=== PATIENT | female | born 1970 | race Caucasian/White ===

== ENCOUNTER → 2021-11-19 09:51 | Outpatient (BNVA) | payer OTHER, SELFPAY | PROVIDERS: PCP Internal Medicine; Visit Provider Nurse Practitioner Family | DX: G43.009 Migraine without aura, not intractable, without status migrainosus (principal); F09 Unspecified mental disorder due to known physiological condition; F07.81 Postconcussional syndrome | CPT/HCPCS: 99212 ==

== ENCOUNTER → 2022-02-16 09:54 | Outpatient (BNVA) | payer OTHER, SELFPAY | PROVIDERS: PCP Internal Medicine; Visit Provider Nurse Practitioner Family | DX: F07.81 Postconcussional syndrome (principal); G43.009 Migraine without aura, not intractable, without status migrainosus; F09 Unspecified mental disorder due to known physiological condition | CPT/HCPCS: 99212 ==

== ENCOUNTER → 2023-01-14 07:46 | Outpatient (BNVA) | payer OTHER, SELFPAY | PROVIDERS: PCP Internal Medicine; Visit Provider Nurse Practitioner Family | DX: G43.009 Migraine without aura, not intractable, without status migrainosus (principal); F07.81 Postconcussional syndrome; R06.2 Wheezing; R05.9 Cough, unspecified; R42 Dizziness and giddiness; F09 Unspecified mental disorder due to known physiological condition | CPT/HCPCS: 99212 ==

== ENCOUNTER 2023-10-26 11:08 | Outpatient (AMB) | payer OTHER, SELFPAY ==
[2023-10-26 11:19] VITALS: BP 118/80; PULSE 84; O2SAT 96; BMI 35.2
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
== END 2023-10-26 12:00 | disposition home or self-care (01) ==
PROVIDERS: Visit Provider Nurse Practitioner Family
DX: R41.840 Attention and concentration deficit (principal); F07.81 Postconcussional syndrome; Z04.3 Encounter for examination and observation following other accident
CPT/HCPCS: 99213

== ENCOUNTER → 2023-10-26 11:08 | Outpatient (BNVA) | payer OTHER, SELFPAY | PROVIDERS: Visit Provider Nurse Practitioner Family | DX: F07.81 Postconcussional syndrome (principal); F09 Unspecified mental disorder due to known physiological condition | CPT/HCPCS: 99212 ==

== ENCOUNTER 2024-04-26 09:30 | Outpatient (AMB) | payer OTHER, SELFPAY ==
--- NOTE | 2024-04-26 09:51 | A.OFFVIS_ITS ---
Vital Signs 04/26/24 09:58 Height 5 ft 4 in Weight 205 lb 8 oz BMI 35.3 BP 115/72 Blood Pressure Location Rt brachial Position Sitting Pulse 82 Pulse Source Pulse Oximeter Pulse Oximetry (%) 98 Oxygen Delivery Method Room Air Intake Visit Reasons: 6 mnts for postconcussive-CONF Intake Note: Patient presents for 6months f/u. Headaches are a lot better but having more memory loss Allergies hydromorphone [From Dilaudid] Allergy (Intermediate, Verified 04/26/24 09:55) Unknown Medication List - Last Reconciled 04/26/24 by AMBROCIO Us albuterol sulfate 90 mcg/actuation (Ventolin HFA) 2 puffs inhalation Q4-6H PRN magnesium oxide 400 mg PO BEDTIME 30 days multivitamin 1 tab PO DAILY omeprazole magnesium 20 mg PO DAILY 30 days riboflavin (vitamin B2) (Vitamin B-2) 200 mg (2 x 100 mg) PO BID 30 days HPI Comments Details: 53-yr-old female presents for f/u visit. Pt continues to have cognitive difficulties. She just had a brain MRI at [facility]. She has been having more osmophobia. She reports that the osmophobia may trigger a headache but may not. About 2 yrs ago, had an episode where the smell exposure triggered full body weakness, could not walk. Had to go to the ER- states work-up was negative. She wonders if this could be d/t migraine. 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 Has not started official tx yet, using OTC supplements which do seem to be helping. She plans to switch to a new machine cell tuber, [facility]. Typical headache characteristics: Prodrome symptoms: unsure Aura: unsure Pain intensity: 7/10 Location, quality, characteristics: Bilateral eyes/ears, frontal, top of head, temporal pressure Associated symptoms: osmophobia, nausea, rare vomiting, not right in space dizziness, lightheadedness, fatigue, cognitive difficulties, activity intolerance, arms feels weak- tashia right hand feels like she cannot pick anything up w/ her right hand, face flushes. Postdrome: unsure Triggers: odors or when her menses would be due Time of day: No specific time of day Duration and Frequency: near constant, worse during 2 weeks when she would have had her menses. PFSH Surgical History History of endometrial ablation H/O tubal ligation Family History Sister CKD (chronic kidney disease) Son Inflammatory heart disease Social History Alcohol intake: never Patient Tobacco Use Status: Never used Tobacco Physical Exam Vital Signs: Last Vital Signs Pulse 82 04/26/24 09:58 BP 115/72 04/26/24 09:58 Pulse Ox 98 04/26/24 09:58 Oxygen Delivery Method Room Air 04/26/24 09:58 BMI result Body Mass Index 35.3 Const General: cooperative and no acute distress Orientation/consciousness: patient oriented x3 Resp Effort & Inspection: normal respiratory effort and able to speak in complete sentences Neuro General: patient oriented x3 Cranial nerves: Yes CN's II-XII intact bilaterally Cognition (Neuro): normal cognition Psych Appearance: grossly normal Mental Status: mental status grossly normal Speech and movement: Normal speech and movement present Affect: normal affect Attitude: cooperative Assessment & Plan Assessment & Plan (1) Migraine without aura: Comment: medication trials- failed Amitriptyline (too sleepy). Code(s): G43.009 - Migraine without aura, not intractable, without status migrainosus Category: Medical (2) Weakness: Code(s): R53.1 - Weakness Category: Medical Plan Pt's episodes of headache which is c/w chronic migraine, osmophobia which may trigger headache, osmophobia which triggers weakness, cognitive diffiuclties- may be chronic migraine, Mast cell activation syndrome, or possibly a skeletal muscle potassium ion channel mutations d/o such as Hypokalemic periodic paralysis (hypoPP)- though this is quite rare. Trial Doxepin 10-30mg qhs for migraine prevention and to see if pt's episodes of osmophobia, nausea, weakness. Advised to track headache and associated symptoms. Discussed that if this is effective, it would support a dx of migarine and/or mast cell activation d/o. f/u w/ machine cell tuber as scheduled. Future considerations- adding acute migraine tx. Check BMP prn episodes of weakness triggered by smell or chemical exposure to eval electrolyte, specifically potassium- multiple lab slips given. Previous neuropsyh results- no evidence for ADHD or neurodegenerative process, cognitive difficulties were felt to be secondary to h/o personal trauma. f/u in 6 months or sooner prn Orders: Orders Basic Metabolic Panel Today R53.1 - Weakness Medications: New doxepin 10 - 30 mg (1 - 3 x 10 mg) PO BEDTIME 30 days 90 caps 3RF Coding Level of Care Code Est Pt Level 4 (85096) Diagnoses Migraine without aura G43.009 Weakness R53.1
[2024-04-26 09:58] VITALS: BP 115/72; PULSE 82; O2SAT 98; BMI 35.3
== END 2024-04-26 11:05 | disposition home or self-care (01) ==
PROVIDERS: PCP Internal Medicine; Visit Provider Nurse Practitioner Family
DX: G43.009 Migraine without aura, not intractable, without status migrainosus (principal); R53.1 Weakness
CPT/HCPCS: 99214

== ENCOUNTER → 2024-04-26 09:30 | Outpatient (BNVA) | payer OTHER, SELFPAY | PROVIDERS: PCP Internal Medicine; Visit Provider Nurse Practitioner Family | DX: G43.009 Migraine without aura, not intractable, without status migrainosus (principal); R53.1 Weakness | CPT/HCPCS: 99212 ==

== ENCOUNTER 2024-04-26 15:18 | Outpatient (REF) | payer OTHER, SELFPAY ==
[2024-04-26 17:26] LABS: MANUAL DIFF FLAG NO
[2024-04-26 17:31] LABS: Basophils Percent Auto 0.7 % (0-2); Eosinophils Absolute Auto 0.1 X10*3/uL (0.0-0.4); Eosinophils Percent Auto 1.1 % (0-4); Hematocrit 39.7 % (37.0-47.0); Hemoglobin 13.5 g/dl (12.0-16.0); Imm Gran Abs Auto 0.01 X10*3/uL (0.00-0.03); Imm Gran Pct Auto 0.2 % (0.0-0.4); Lymphocytes Absolute Auto 1.5 X10*3/uL (1.2-4.9); Lymphocytes Percent Auto 27.7 % (20-40); Mean Corpuscular Hemoglobin 29.7 pg (27.0-33.0); Mean Corpuscular Volume 87.3 fL (80.0-98.0); Mean Platelet Volume 11.7 fL (9.4-12.3); Monocytes Absolute Auto 0.5 X10*3/uL (0.1-1.2); Monocytes Percent Auto 9.8 % (2-11); Neutrophils Absolute Auto 3.3 x10*3/uL (2.0-8.3); Neutrophils Percent Auto 60.5 % (45-73); Platelet Count 239 X10*3/uL (160-400); Red Blood Count 4.55 X10*6/uL (4.20-5.50); Red Cell Distribution Width 12.7 % (11.0-16.0); White Blood Count 5.4 X10*3/uL (4.8-10.8)
[2024-04-26 17:33] LABS: Prothrombin Time 11.9 SEC (11.1-13.3)
[2024-04-26 17:46] LABS: Rheumatoid Factor < 13.0 IU/mL (<15.0)
[2024-04-26 17:48] LABS: Alanine Aminotransferase 27 U/L (0-31); Albumin Level 4.4 g/dL (3.5-5.0); Alkaline Phosphatase 102 U/L (39-117); Anion Gap 13 (12-20); Aspartate Amino Transferase 21 U/L (5-31); Bilirubin Total 0.4 mg/dL (0.0-1.0); Blood Urea Nitrogen 13 mg/dL (9-16); Calcium 10.2 mg/dL (8.4-10.2); Carbon Dioxide 25 mmol/L (22-29); Chloride 108 mmol/L (96-108); Estimated Glomerular Filt Rate > 60; Glucose Random 83 mg/dL (60-115); Potassium 3.5 mmol/L (3.3-5.1); Sodium 142 mmol/L (135-145); Total Protein 8.1 g/dL (6.5-8.0)
[2024-04-26 18:19] LABS: Erythrocyte Sedimentation Rate 24 MM/HR (0-20)
[2024-04-26 18:39] LABS: Partial Thromboplastin Time 30.6 SEC (26.0-36.8)
[2024-04-27 05:04] LABS: Estimated Average Glucose 120 mg/dL; Hemoglobin A1c % 5.8 % (<6.0)
[2024-04-28 18:44] LABS: CRP High Sensitivity 6.4 mg/L
[2024-05-04 12:19] LABS: Anti Nuclear Antibody Screen NEGATIVE (NEGATIVE)
== END 2024-04-26 15:19 | disposition home or self-care (01) ==
LOC: HO.HKASLDS 15:18
PROVIDERS: Visit Provider Nurse Practitioner Family
DX: R53.1 Weakness (principal); H53.8 Other visual disturbances; R90.89 Other abnormal findings on diagnostic imaging of central nervous system; F09 Unspecified mental disorder due to known physiological condition
CPT/HCPCS: 36415; 80053; 83036; 85025; 85610; 85652; 85730; 86038; 86141; 86431

== ENCOUNTER 2024-11-23 11:17 | Outpatient (AMB) | payer OTHER, SELFPAY ==
[2024-11-23 11:21] VITALS: BP 120/74; PULSE 79; O2SAT 96; BMI 35.1
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
--- OUTSIDE RECORDS SUMMARY | 2024-11-23 15:10 | XMS_ITS | Clinical Summary ---
Author Organization 175 [facility] Address [address] [place] [address] Phone Care Team Providers Care Gaming Commissioner Name Role Phone Sheron Merino MD Primary Care Provider Allergies Active Allergy Reactions Criticality Noted Date Comments Hydromorphone 08/20/2016 Anxious Medications Medication Sig Dispensed Refills Start Date End Date Status albuterol HFA (Ventolin HFA) 90 mcg/actuation inhaler INHALE 2 PUFFS EVERY 4-6HRS NEEDED 01/17/2024 Active cholecalciferol (VITAMIN D-3) 50 mcg (2,000 unit) capsule Take by mouth. Active vitamin K1-vitamin E TPGS 200 mcg-2 mg /0.2 mL drops Take by mouth. Active fluticasone propion-salmeteroL (ADVAIR DISKUS) 100-50 mcg/dose diskus inhaler Take 1 puff by mouth 2 (two) times a day. 03/13/2024 Active naproxen (NAPROSYN) 500 mg tablet Take 1 tablet (500 mg total) by mouth. 06/28/2024 06/23/2025 Active Active Problems Problem Noted Date Diagnosed Date Chest pain 03/24/2024 Overview (07/27/2024): Last Assessment & Plan: Patient will be scheduled for routine stress test not the possibility of ischemic disease Class 2 obesity due to exces s calories without serious comorbidity in adult 03/22/2024 Gastroesophageal reflux disease 03/22/2024 Exertional dyspnea 03/22/2024 Mild persistent asthma without complication 02/23 Helicobacter pylori gastritis 07/27/2021 Pulmonary nodule 04/24/2021 Overview (07/27/2024): Incidental finding on CT chest 03/2021 COVID-19 virus detected 09/23/2020 Cervicalgia 08/04/2020 Overview (07/27/2024): Normal MRI of the cervical spine done in the emergency room June 2020 Lumbar disc herniation 03/18/2017 Overview (07/27/2024): L5-S1 disc herniation with extruded fragment Had MRI of the lumbar spine when she went to the emergency room June 2020 no stenosis Anxiety 09/22/2016 Fibromyalgia 09/22/2016 Depression 08/31/2005 Encounters Date Type Department Care Team Description 11/03/2024 9:00 AM EST Office Visit Adult Medicine [facility] [address] [place] [phone] Sheron Merino MD 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 Telephone Adult Medicine [facility] [address] [place] [phone] Hilary Carroll, RN Results from Last 3 Months Immunizations Name Administration Dates Next Due Hepatitis B (Csucyjc-G-Mufjc , Recombivax HB-Adult) 19yo and older 12/23/2005,07/15/2005,06/24/2005 Influenza Quadravalent, MDCK , 0.5ml, preservative free (Flucelvax) 6mo and older 07/05/2023,07/10/2022 Moderna SARS-CoV-2 COVID-19, mRNA, LNP-S, preservative free 11/07/2021 PPD Test 05/19/2005 Pfizer SARS-CoV-2 COVID-19, mRNA, LNP-S, preservative free 09/11/2022 Td Tetanus diptheria (Tdvax) 7yo and older 06/18,07/02/2001 Tdap Tetanus diptheria acell ular pertussis (Boostrix; Adacel) 7yo and older 08/31/2016 Surgical History Surgery Date Site/Laterality Comments TUBAL LIGATION 1999 PROCEDURE: HISTORICAL TUBAL LIGATION OTHER SURGICAL HISTORY PROCEDURE: UT DILATION & CURETTAGE DX&/THER NONOBSTETRIC Medical History Medical History Date Comments Fibromyalgia DX:Fibromyalgia Pre-diabetes DX:Pre-diabetes Depression 08/31/2005 DX:Depression Anxiety 09/22/2016 DX:Anxiety ADD (attention deficit disorder) 09/22/2016 DX:ADD (attention deficit disorder) Headache 09/22/2016 DX:Headache Lumbar disc herniation 03/18/2017 DX:Lumbar disc herniation; COMMENT: L5-S1 disc herniation with extruded fragment Family History Medical History Relation Name Comments Alzheimer's disease Aunt Suicide Attempts Brother 1 ADD / ADHD Daughter 1 Bipolar disorder Daughter 2 Other: Fibromyalgia Daughter 2 No Known Problems Father Dementia Maternal Grandmother Depression Mother Rheum arthritis Mother Depression Sister Diabetes Sister ADD / ADHD Son Breast cancer Neg Hx Cancer of Small Bowel Neg Hx Colon cancer Neg Hx Kidney cancer Neg Hx Ovarian cancer Neg Hx Pancreatic cancer Neg Hx Uterine cancer Neg Hx Relation Name Status Comments Aunt Alive Brother 1 Brother 2 Alive Daughter 1 Alive Daughter 2 Alive Father Alive Maternal Grandfather Maternal Grandmother Mother Alive Paternal Grandfather Paternal Grandmother Sister Son Alive Social History Tobacco Use Types Packs/Day Years Used Date Smoking Tobacco: Never Smokeless Tobacco: Never Tobacco Cessation:Counseling Given: Not Answered Alcohol Use Standard Drinks/Week Comments No 0 (1 standard drink = 0.6 oz pur e alcohol) Housing Instability Answer Date Recorde d Are you worried that in the next 2 months you may not have stable housing? No 11/02/2024 Food Access & Nutrition Answer Date Rec orded Do you have access to a vari ety of food including fruits and vegetables? Yes 11/02/2024 Access to Healthcare Answer Date Record ed Within the last 3 months, brandon w many times did you visit the emergency department for your medical care? 0 11/02/2024 Health Literacy Answer Date Recorded How often do you need to hav e someone help you when you read instructions, pamphlets, or other written material from your doctor or pharmacy? Never 11/02/2024 Caregiver: How often do you need to have someone help you when you read instructions, pamphlets, or other written material from your doctor or pharmacy? Not on file 11/02/2024 Financial Risk Answer Date Recorded How hard is it for you to pa y for the very basics like food, housing, medical care, and air conditioning / heating? Not very hard 11/02/2024 Transportation Answer Date Recorded Has the lack of transportati on kept you from meetings, work, or from getting things needed for daily living? No Has the lack of transportati on kept you from medical appointments or from getting medications? No 11/02/2024 Social Isolation Answer Date Recorded How often do you feel lonely or isolated from those around you? Sometimes 11/02/2024 Food Risk Answer Date Recorded Within the past 12 months we worried whether our food would run out before we got money to buy more. Never true 11/02/2024 Within the past 12 months th e food we bought just didn't last and we didn't have money to get more. Never true 11/02/2024 Dependent Care Answer Date Recorded Do you need help finding or paying for care for your loved ones. For example, early childhood assistant or elderly care for an older adult? No 11/02/2024 Education Answer Date Recorded Do you think completing more education or training, like finishing a GED, going to college, or learning a trade, would be helpful for you? N/A 11/02/2024 Employment and Income Answer Date Recor ded During the last four weeks, have you been actively looking for work? No 11/02/2024 Living Situation Answer Date Recorded What is your living situation? 0 11/02/2024 Sex and Gender Information Value Date Recorded Sex Assigned at Not on file Gender Identity Not on file Sexual Orientation Not on file Job Start Date Occupation Industry Not on file Not on file Not on file Obstetrics History Last Filed Vital Signs Vital Sign Reading Time Taken Comments Blood Pressure 101/60 11/03/2024 9:03 AM EST Pulse 76 11/03/2024 9:03 AM EST Temperature 36.2 ??C (97.2 ??F) 11/03/2024 9:03 AM ES T Respiratory Rate 16 11/03/2024 9:03 AM EST Oxygen Saturation - - Inhaled Oxygen Concentration - - Weight 92.7 kg (204 lb 6.4 oz) 11/03/2024 9:03 A M EST Height 164 cm (5' 4.57 ) 11/03/2024 9:03 AM EST Body Mass Index 34.47 11/03/2024 9:03 AM EST Plan of Treatment Upcoming Encounters Date Type Department Care Team (Late st Contact Info) Description 12/11/2024 10:10 AM EST Office Visit Pulmonolgy - [place] 175 [facility] [address] [place] [phone] Renee Owen NP 175 [facility] [place] [address] [place] [phone] 01/02/2025 10:10 AM EDT Office Visit Gastroenterology - [place] [address] [place] [address] [phone] Divya Kumar PA [address] [address] 08/31/2025 9:30 AM EST Appointment Radiology Department - [address] [phone] Health Maintenance Due Date Last Done Comments Pneumococcal Vaccine: Pediatrics (0 to 5 Years) and At-Risk Patients (6 to 64 Years) (1 of 2 - PCV) 1978 Hepatitis B Vaccines (3 of 3 - 19+ 3-dose series) 02/17/2006 12/23/2005, 07/15/2005, 06/24/2005 HIV Screening 10/03/2022 Hepatitis C Screening 10/03/2022 Zoster Vaccines (1 of 2) 2022 COVID-19 Vaccine ( season) 2024 09/11/2022, 11/07/2021, 02/06/2021, Additional history exists Influenza Vaccine (#1) 2024 07/05/2023, 2021 Depression Screening 11/02/2025 11/02/2024, 04/11/2024, 04/11/2024 Social Influencers of Health Screening 11/02/2025 11/02/2024, 10/29/2020 Cervical Cancer Screening: HPV 01/13/2026 01/13/2021 Breast Cancer Screening 08/04/2026 08/04/20 24, 08/04/2024, 07/27/2023, Additional history exists DTaP,Tdap,and Td Vaccines (4 - Td or Tdap) 08/31/2026 08/31/2016, 06/18/2005, 07/02/2001 Cholesterol Screening (Lipid Panel) 04/11/2029 04/11/2024, 04/11/2024 Colorectal Cancer Screening: Colonoscopy 07/17/2031 07/17/2021, 07/17/2021 HIB Vaccines Aged Out No longer eligi ble based on patient's age to complete this topic HPV Vaccines Aged Out No longer eligi ble based on patient's age to complete this topic Hepatitis A Vaccines Aged Out No long er eligible based on patient's age to complete this topic IPV Vaccines Aged Out No longer eligi ble based on patient's age to complete this topic MMR Vaccines Aged Out No longer eligi ble based on patient's age to complete this topic Meningococcal ACWY Vaccine Aged Out N o longer eligible based on patient's age to complete this topic RSV Immunization Patients Under 20 months Aged Out No longer eligible based on patient's age to complete this topic Varicella Vaccines Aged Out No longer eligible based on patient's age to complete this topic Procedures Procedure Name Priority Date/Time Associated Diagnosis Comments SCREENING MAMMOGRAPHY BI 2-VIEW BREAST INC CAD Routine 08/04/2024 9:38 AM EDT Encounter for other screening for malignant neoplasm of breast DEPRESSION SCREENING Routine 04/11/2024 LIPID PANEL Routine 04/11/2024 COLONOSCOPY Routine 07/17/2021 HPV Routine 01/13/2021 from Last 3 Months or Most Recently Relevant to Health Maintenance Results * SCREENING MAMMOGRAPHY BI 2-VIEW BREAST INC CAD (08/04/2024 9:38 AM EDT) Anatomical Region Laterality Modality Radiographic Robyn ging 07/27/2023 10:4 9 AM EDT Narrative 08/04/2024 5:19 PM EDT This is a summary report. The complete report is available in the patient's medical record. If you cannot access the medical record, please contact the sending organization for a detailed fax or copy. BILATERAL 3D DIGITAL SCREENING MAMMOGRAM History: Routine screening. ??No current breast complaints. ?? Comparison: Multiple priors dating back to 01/09/2020 Technique: Bilateral full-field digital 3D mammography was performed using standard CC and MLO projections CAD was used to evaluate this mammogram. Findings: Density: ??There are scattered areas of fibroglandular density-B RIGHT: No suspicious masses, groups of microcalcification or areas of architectural distortion identified. Stable typically benign parenchymal asymmetries LEFT: No suspicious masses, groups of microcalcifications or areas of architectural distortion identified. Stable typically benign parenchymal asymmetries IMPRESSION: : 1. ??No mammographic evidence of malignancy. BI-RADS Category 2 benign findings Recommendation: Routine annual screening mammography is recommended [facility] [address] [place] [phone] Procedure Note Nisha Quezada MD - 08/22/2024 This is a summary report. The complete report is available in thepatient's medical record. If you cannot access the medical record, pleasecontact the sending organization for a detailed fax or copy. BILATERAL 3D DIGITAL SCREENING MAMMOGRAM History: Routine screening. No current breast complaints. Comparison: Multiple priors dating back to 01/09/2020 Technique: Bilateral full-field digital 3D mammography was performed usingstandard CC and MLO projections CAD was used to evaluate this mammogram. Findings: Density: There are scattered areas of fibroglandular density-B RIGHT: No suspicious masses, groups of microcalcification or areas ofarchitectural distortion identified. Stable typically benign parenchymalasymmetries LEFT: No suspicious masses, groups of microcalcifications or areas ofarchitectural distortion identified. Stable typically benign parenchymalasymmetries IMPRESSION: : 1. No mammographic evidence of malignancy. BI-RADS Category 2 benign findings Recommendation: Routine annual screening mammography is recommended [facility] [address] [place] [address] Tez Barraza CNM IMG XR PROCEDURES * Depression Screening (04/11/2024) Pathologist [facility] Depression Screening abstracted Historical Provider MD JESIKA WELLER E * (ABNORMAL) Lipid panel (04/11/2024) [facility] LDL/HDL Ratio 5(A) 0 - 4 Triglycerides 164(A) 0 - 150 mg/dL Cholesterol 166 0 - 200 mg/dL HDL 33(A) 40 mg/dL LDL Cholesterol 101(A) 0 - 100 mg/dL Blood Venous blood specimen / Unknown Historical Provider LAB BLOOD ORDERAB LES * Colonoscopy (07/17/2021) [facility] Colonoscopy abstracted, no interpretation Anatomical Region Laterality Modality Other Historical Provider MD JESIKA WELLER E * Cervical Cancer Screening: HPV (01/13/2021) [facility] Cervical Cancer Screening: HPV abstracted, negative Historical Provider MD JESIKA Fisher from Last 3 Months or Most Recently Relevant to Health Maintenance Advance Directives Documents on File Type Date Recorded 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 Health Care Decision (hx) 08/13/2021 AD DALY DIRECTIVE Health Care Decision (hx) 08/13/2021 AD DALY DIRECTIVE Health Care Decision (hx) 08/13/2021 AD DALY DIRECTIVE Health Care Decision (hx) 08/13/2021 AD DALY DIRECTIVE Health Care Decision (hx) 08/13/2021 AD DALY DIRECTIVE Health Care Decision (hx) 08/13/2021 AD DALY DIRECTIVE Health Care Decision (hx) 08/13/2021 AD DALY DIRECTIVE Health Care Decision (hx) 08/13/2021 AD DALY DIRECTIVE Health Care Decision (hx) 08/13/2021 AD DALY DIRECTIVE Health Care Decision (hx) 05/27/2021 AD DALY DIRECTIVE Health Care Decision (hx) 05/27/2021 AD DALY DIRECTIVE Health Care Decision (hx) 05/27/2021 AD DALY DIRECTIVE Health Care Decision (hx) 05/27/2021 AD DALY DIRECTIVE Health Care Decision (hx) 05/27/2021 AD DALY DIRECTIVE Health Care Decision (hx) 05/27/2021 AD DALY DIRECTIVE Health Care Decision (hx) 05/27/2021 AD DALY DIRECTIVE Health Care Decision (hx) 05/27/2021 AD DALY DIRECTIVE Health Care Decision (hx) 05/27/2021 AD DALY DIRECTIVE Health Care Decision (hx) 05/27/2021 AD DALY DIRECTIVE Health Care Decision (hx) 05/27/2021 AD DALY DIRECTIVE Health Care Decision (hx) 05/27/2021 AD DALY DIRECTIVE Health Care Decision (hx) 05/27/2021 AD DALY DIRECTIVE Health Care Decision (hx) 05/27/2021 AD DALY DIRECTIVE Health Care Decision (hx) 05/27/2021 AD DALY DIRECTIVE Health Care Decision (hx) 05/27/2021 AD DALY DIRECTIVE Health Care Decision (hx) 05/27/2021 AD DALY DIRECTIVE Health Care Decision (hx) 05/27/2021 AD DALY DIRECTIVE Health Care Decision (hx) 05/27/2021 AD DALY DIRECTIVE Health Care Decision (hx) 05/27/2021 AD DALY DIRECTIVE Health Care Decision (hx) 05/27/2021 AD DALY DIRECTIVE Health Care Decision (hx) 05/27/2021 AD DALY DIRECTIVE Health Care Decision (hx) 05/27/2021 AD DALY DIRECTIVE Health Care Decision (hx) 05/27/2021 AD DALY DIRECTIVE Health Care Decision (hx) 05/27/2021 AD DALY DIRECTIVE Health Care Decision (hx) 05/27/2021 AD DALY DIRECTIVE Care Teams Gaming Commissioner Relationship Specialty Start Date End Date Sheron Merino MD [address] [place] [address] PCP - General Internal Medicine 11/12/21
--- OUTSIDE RECORDS SUMMARY | 2024-11-23 15:10 | XMS_ITS | Encounter Summary ---
Author Organization [facility] Address [address] [place] [address] Care Team Providers Care Pipe Fitter Welding Name Role Phone Sheron Merino MD Primary Care Provider Reason for Referral * Consultation (Routine) - Pending Review Specialty Diagnoses / Procedures Referred By Rodrick mims Referred To Contact Allergy Diagnoses Mast cell activation syndrome (CMS/HCC) Sheron Merino MD [address] [place], [place] Referral ID Status Reason Start Date Expiration Date Visits Requested Visits Authorized [id number] Pending Review Specialty Services Required 4 10/24/2025 1 1 Reason for Visit * Reason Onset Date Comments Results 10/23/2024 Encounter Details Date Type Department Care Team ([facility] Contact Info) Description 10/23/2024 Telephone Adult Medicine - [place] [address] [place] [phone] Hilary Carroll, RN Results Social History Tobacco Use Types Packs/Day Years Used Date Smoking Tobacco: Never Smokeless Tobacco: Never Alcohol Use Standard Drinks/Week Comments No 0 [...] Record ed Within the last 3 months, ho w many times did you visit the [...] care for your loved ones. For example, child and family services specialist or elderly care for an older adult? [...] file Not on file Not on file documented as of this encounter Progress Notes * Sheron Merino MD - 10/24/2024 1:53 PM EST [facility]. * Hilary Carroll RN - 10/23/2024 12:27 PM EST Images from the original note were not included. Per previous [employer] messages: patient looking for [facility] results Mast cell activation syndrome Referral (Newest Message First) View All Conversations on this Encounter Asia Azar You5 minutes ago (12:20 PM) BRYON Johnson Please let me know if you received my results for [facility]. You routed conversation to Sheron Merino MD7 days ago You7 days ago To PCP, please see Snoballt message and attached lab result. Patient is requesting to see a specialist in [place] Unsigned Note Asia Azar You7 days ago BRYON There are a lot of pages but I???ll send the one that Dr contrerasated as [facility]. Attachments [email or web address] You Asia Azar7 days ago Do you happen to have a copy of the office note you can upload so she can review it? I don't see a copy scanned in your chart so it's possible they never forwarded one. Asia Azar You7 days ago BRYON It was either December or January of this year. I went to [facility] In [place] [facility] ([address]) but that office is now closed. They have one in [place] and other places. You Asia Azar7 days ago Dawood Betancourt, when did you get this diagnosis? Which Allergy/escapement matcher did you go to? 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 Their office doesn???t not have a specialist and I need to find one. I found a place in [place] called [facility] . But To schedule a consultation i must have a written referral letter from my local physician. I???m not sure if you have the results from my diagnosis or if I need to forward them to you beforeanything happens but please let me know what you need from me . Thank you documented in this encounter Plan of Treatment Upcoming Encounters Date Type Department Care Team (Late st Contact Info) Description 12/11/2024 10:10 AM EST Office Visit Pulmonolgy - [place] [address] [phone] Renee Owen NP [address] [address] 01/02/2025 10:10 AM EDT Office Visit Gastroenterology - [place] 175 [facility] [address] [phone] Divya Kumar PA [address] [address] 08/31/2025 9:30 AM EST Appointment Radiology Department [address] [phone] Scheduled Referrals Name Type Priority Associated Diagnoses Order Schedule Ambulatory referral to Allergy Outpatient Referral Routine Mast cell activation syndrome (CMS/HCC) Expected: 10/24/2024 (Approximate), Expires: 10/24/2025 documented as of this encounter Visit Diagnoses Diagnosis Mast cell activation syndrome (CMS/HCC)- Primary Encounter for screening mammogram for breast cancer documented in this encounter Care Teams Pipe Fitter Welding Relationship Specialty Start Date End Date Sheron Merino MD [address] [address] PCP - General Internal Medicine 11/12/21 documented as of this encounter
--- OUTSIDE RECORDS SUMMARY | 2024-11-23 15:10 | XMS_ITS | Encounter Summary ---
Author Organization [facility] [place] [address] Care Team Providers Care Process Maintenance Technician Name Role Phone Sheron Mcgraw MD Primary Care Provider Reason for Referral * Imaging (Routine) - Authorized Specialty Diagnoses / Procedures Referred By Rodrick mims Referred To Contact Radiology Diagnoses Mast cell activation syndrome (CMS/HCC) Procedures IR Bx and Asp Bone Marrow Sheron Mcgraw MD [address] [place] [phone] [facility] Interventional Radiology [address] [place] [phone] Referral ID Status Reason Start Date Expiration Date V isits Requested Visits Authorized [id number] Authorized 11/03/2024 11/03/2025 1 1 * Consultation (Routine) - Closed Specialty Diagnoses / Procedures Referred By Rodrick mims Referred To Contact Hematology / Hematology and Oncology Diagnoses Mast cell activation syndrome (CMS/HCC) Sheron Mcgraw MD [address] [place] [address] [facility] Hematology Oncology [address] [place] [phone] Referral ID Status Reason Start Date Expiration Date V isits Requested Visits Authorized [id number] Closed Specialty Services Required 11/03/2024 11/03/2025 1 0 Reason for Visit * Reason Comments Personal Problem Want to talk with yo u. Encounter Details Date Type Department Care Team (Late st Contact Info) Description 11/03/2024 9:00 AM EST Office Visit Adult Medicine - [place] [address] [place] [phone] Sheron Mcgraw MD [address] [place] [address] Mast cell activation syndrome (CMS/HCC) (Primary Dx) Social History Tobacco Use Types Packs/Day Years [...] care for your loved ones. For example, children librarian or elderly care for an older adult? [...] on file documented as of this encounter Last Filed Vital Signs Vital Sign Reading [...] Mass Index 34.47 11/03/2024 9:03 AM EST documented in this encounter Progress Notes * Sheron Mcgraw MD - 11/03/2024 9:00 AM ESTAddended by: SHERON MCGRAW on: 11/03/2024 04:25 PM Modules accepted: Orders * Sheron Mcgraw MD - 11/03/2024 9:00 AM EST CHIEF COMPLAINT: Personal Problem (Want to talk with you.) IDENTIFIER: Asia Azar is a 53 y.o. old female. HPI: Patient presents today for fu. 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 She was later sent to [place] - promotions producer and they recommended she go to [facility]. She needs labs done- which was ordered by promotions producer but also needs bone marrow biopsy done before she can be seen at [facility]. Will refer her to local grey inspector and see how they can assist. 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 Reports needs is sensitive to perfumes and strong smells. Asking if she can get leave from work. Discussed getting on intermittent FMLA- for 6months- until she is seen and treated at [facility]. ROS: See HPI The remainder of review of systems is noncontributory. PAST MEDICAL HISTORY: Patient Active Problem List Diagnosis Date Noted Chest pain 03/24/2024 Class 2 obesity due to excess calories without serious comorbidity in adult 03/22/2024 Gastroesophageal reflux disease 03/22/2024 Exertional dyspnea 03/22/2024 Mild persistent asthma without complication 03/22/2024 Helicobacter pylori gastritis 07/27/2021 Pulmonary nodule 04/24/2021 COVID-19 virus detected 09/23/2020 Cervicalgia 08/04/2020 Lumbar disc herniation 03/18/2017 Anxiety 09/22/2016 Fibromyalgia 09/22/2016 Depression 08/31/2005 SOCIAL HISTORY: Social History Tobacco Use Smoking status: Never Smokeless tobacco: Never Substance Use Topics Alcohol use: No FAMILY HISTORY: Family Status Relation Name Status Mother Alive Father Alive Sister Brother MGM Aunt Alive Daughter Alive Daughter Alive Son Alive Neg Hx (Not Specified) Brother Alive MGF PGM PGF No partnership data on file Family History Problem Relation Name Age of Onset Depression Mother Rheum arthritis Mother No Known Problems Father Diabetes Sister Depression Sister Suicide Attempts Brother Dementia Maternal Grandmother 58.00 Alzheimer's disease Aunt ADD / ADHD Daughter Bipolar disorder Daughter Other (Other: Fibromyalgia) Daughter ADD / ADHD Son Breast cancer Neg Hx Ovarian cancer Neg Hx Colon cancer Neg Hx Pancreatic cancer Neg Hx Kidney cancer Neg Hx Cancer of Small Bowel Neg Hx Uterine cancer Neg Hx ACTIVE MEDICATIONS: No outpatient medications have been marked as taking for the 11/03/24 encounter (Office Visit) with Sheron Mcgraw MD. ALLERGIES: Hydromorphone PHYSICAL EXAM: Blood pressure 101/60, pulse 76, temperature 36.2 ??C (97.2 ??F), temperature source Temporal, resp. rate 16, height 1.64 m (64.57 ), weight 92.7 kg (204 lb 6.4 oz). Body mass index is 34.47 kg/m??. BMI is greater than 25.0 (above the normal range) - see Plan APPEARANCE: Alert and in no acute distress IMPRESSION: 1. Mast cell activation syndrome (CMS/HCC) PLAN: Referral to hematology- bone marrow biopsy. Pt will drop off intermittent FMLA forms- absence from work 1-2x week for upto 6 months until eval and treated by mastocytosis clinic at [facility]. I believe she will not be able to get accomodation due to the nature of her job. If unable to return fulltime- might have to look for a different job. Fu in 6months. I received a communication from ( hematogy/oncology department) at [facility], informing me that they no longer do bone marrow biopsies in office and the patient should be referred to IR at [facility]. I called and left a VM with pt regarding the same. Orders Placed This Encounter Procedures IR Bx and Asp Bone Marrow Standing Status: Future Standing Expiration Date: 11/03/2025 Order Specific Question: Is the patient ? Answer: No Order Specific Question: Does the patient require anesthesia? Answer: No Order Specific Question: In what REGION should this be scheduled? Answer: [facility] [[id number]] Order Specific Question: In what [place] LOCATION should this be scheduled? Answer: [facility] [[id number]] Ambulatory referral to Hematology Pt dx with mast cell activation syndrome and needs bone marrow biopsy done ( before she can be seenat [facility] mastocytosis clinic). Currently with promotions producer at [place]. Standing Status: Future Standing Expiration Date: 11/03/2025 Referral Priority: Routine Referral Type: Consultation Referral Reason: Specialty Services Required Requested Specialty: Hematology Number of Visits Requested: 1 Sheron Mcgraw MD on 11/03/2024 at 4:24 PM EST documented in this encounter Plan of Treatment Upcoming Encounters Date Type Department Care Team (Late st Contact Info) Description 12/11/2024 10:10 AM EST Office Visit Pulmonolgy - [place] [address] [place] [phone] Renee Owen NP [address] [place] [address] 01/02/2025 10:10 AM EDT Office Visit Gastroenterology - [place] [address] [place] [phone] Divya Kumar PA [address] [place] [address] 08/31/2025 9:30 AM EST Appointment Radiology Department - [address] [phone] Scheduled Orders Name Type Priority Associated Diagnoses Orde r Schedule IR Bx and Asp Bone Marrow Imaging Routine Mast cell activation syndrome (CMS/HCC) Expected: 11/03/2024, Expires: 11/03/2025 Scheduled Referrals Name Type Priority Associated Diagnoses Order Schedule Ambulatory referral to Hematology Outpatient Referral Routine Mast cell activation syndrome (CMS/HCC) Expected: 11/03/2024 (Approximate), Expires: 11/03/2025 documented as of this encounter Visit Diagnoses Diagnosis Mast cell activation syndrome (CMS/HCC)- Primary Encounter for screening mammogram for breast cancer documented in this encounter Additional Health Concerns Assessment Noted Time PHQ-9 Depression Total Score: 6 11/02/19 25 3:28 PM EST documented as of this encounter Care Teams Process Maintenance Technician Relationship Specialty Start Date End Date Sheron Mcgraw MD [address] [place] [phone] PCP - General Internal Medicine 11/12/21 documented as of this encounter
== END 2024-11-23 12:21 | disposition home or self-care (01) ==
PROVIDERS: PCP Internal Medicine; Visit Provider Nurse Practitioner Family
DX: G43.009 Migraine without aura, not intractable, without status migrainosus (principal); R53.1 Weakness; R41.89 Other symptoms and signs involving cognitive functions and awareness
CPT/HCPCS: 99214

== ENCOUNTER → 2024-11-23 11:17 | Outpatient (BNVA) | payer OTHER, SELFPAY | PROVIDERS: PCP Internal Medicine; Visit Provider Nurse Practitioner Family | DX: G43.009 Migraine without aura, not intractable, without status migrainosus (principal); R53.1 Weakness; F09 Unspecified mental disorder due to known physiological condition | CPT/HCPCS: 99212 ==

== ENCOUNTER → 2024-12-07 11:04 | Outpatient (BNVA) | payer SELFPAY | PROVIDERS: PCP Internal Medicine; Visit Provider Physician Assistant Medical | DX: Z02.79 Encounter for issue of other medical certificate (principal) ==